=== PATIENT | male | born 2000 | race African-American/Black ===

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

== ENCOUNTER 2025-04-07 17:37 | Emergency (ER) | payer OTHER, MEDICAID ==
[~2025-04-07] VITALS: Ht 175.3 cm; Wt 96.0 kg
[~2025-04-07 17:37] MED LIST: IBUP-2029 MT; ONDA4TAB5 MT
[2025-04-07 17:55] VITALS: TEMP 36.9; O2SAT 98
[2025-04-07 19:17] LABS: BASOPHILS % 0.3 % (0.0-2.0); EOSINOPHILS % 0.7 % (0.0-5.0); HEMATOCRIT. 46.2 % (42.0-52.0); HEMOGLOBIN. 15.5 g/dL (14.0-18.0); LYMPHOCYTES % 25.2 % (20.0-50.0); MEAN PLATELET VOLUME 7.8 fl (7.4-10.4); MONOCYTES % 8.4 % (2.0-8.0); NEUTROPHILS % 65.4 % (40.0-76.0); PLATELET 257 x1000/uL (130-400); RED BLOOD CELL COUNT 5.23 mill/uL (4.7-6.1); RED CELL DISTRIBUTION WIDTH 13.5 % (11.6-14.6)
[2025-04-07 19:30] LABS: CREATININE 1.1 mg/dL (0.6-1.3); UREA NITROGEN BLOOD 11 mg/dL (9-23)
[2025-04-07 19:31] LABS: TROPONIN I HIGH SENSITIVITY < 4 ng/L (3.0-53)
[2025-04-07 20:40] VITALS: BP 134/80; PULSE 77; RESP 13; O2SAT 98
== END 2025-04-07 20:50 | disposition home or self-care (01) ==
LOC: ER 17:37
DX: R07.89 Other chest pain (principal); R06.02 Shortness of breath
CPT/HCPCS: 36415; 71045; 80048; 84484; 85025; 93005; 99285